=== PATIENT | male | born 1965 | race Caucasian/White ===

== ENCOUNTER → 2020-10-01 | Outpatient (CLI) | payer BC ==
[~2020-10-01] MED LIST: IRBE150T7 PO
--- NOTE | 2020-10-02 01:39 | REP ---
INDICATION: COUGH COMPARISON: None. TECHNIQUE: PA and lateral. FINDINGS: The mediastinum and cardiac silhouette are normal. The lung avila are clear and without acute consolidation, effusion, or pneumothorax. The skeletal structures are intact and normal. IMPRESSION: No acute cardiopulmonary process. <Electronically signed by Chava Wild > 10/02/20 [id number]
== END ==
LOC: M WUC 15:08
PROVIDERS: ATTEND Internal Medicine
DX: R05 Cough (principal)

== ENCOUNTER → 2021-05-07 | Outpatient (CLI) | payer BC ==
--- NOTE | 2021-05-07 19:54 | REPVR ---
PROCEDURE INFORMATION: Exam: MR Cervical Spine Without Contrast Exam date and time: 05/07/2021 2:11 PM Age: 55 years old Clinical indication: Neck pain; Additional info: Pain tingling RT arm hand TECHNIQUE: Imaging protocol: Multiplanar magnetic resonance images of the cervical spine without contrast. COMPARISON: CR CHEST 2 VIEW 10/01/2020 3:23 PM FINDINGS: Cervical vertebral body heights are intact. Straightening of the cervical lordosis. The dens is intact. No abnormal marrow signal. No cord compression, expansion, or abnormal cord signal. Visualized structures of the posterior fossa are unremarkable. Soft tissues are unremarkable. C2-C3: No significant canal or foraminal narrowing. C3-C4: Slight posterior disc protrusion and uncovertebral spurring causing mild canal narrowing and mild bilateral foraminal narrowing. C4-C5: Posterior disc protrusion and uncovertebral spurring cause mild canal narrowing with moderate right and moderate to severe left foraminal narrowing. C5-C6: Posterior disc protrusion and uncovertebral spurring cause mild canal narrowing and moderate to severe bilateral foraminal narrowing. C6-C7: Uncovertebral spurring causes moderate right and severe left foraminal narrowing. No significant canal narrowing. C7-T1: No significant canal or foraminal narrowing. 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 Electronically signed by: Corbin Zapien On 05/07/2021 19:53:56 PM
== END ==
LOC: M PLAIMG 13:00
PROVIDERS: ATTEND Internal Medicine
DX: M79.601 Pain in right arm (principal); M50.221 Other cervical disc displacement at C4-C5 level; M50.222 Other cervical disc displacement at C5-C6 level; M50.223 Other cervical disc displacement at C6-C7 level; M47.812 Spondylosis without myelopathy or radiculopathy, cervical region

== ENCOUNTER → 2024-05-28 | Outpatient (CLI) | payer BC ==
[~2024-05-28] MED LIST changes: +IRBE150T27 PO; -IRBE150T7 PO; +PROHANCE 279.3MG/ML 15ML VIAL As Ordered ONE; +PROHANCE 279.3MG/ML 5ML VIAL As Ordered ONE
== END ==
LOC: M RAD 16:27
PROVIDERS: ATTEND Otolaryngology
DX: H91.92 Unspecified hearing loss, left ear (principal)
CPT/HCPCS: 70553; A9576

== ENCOUNTER → 2024-07-17 | Outpatient (CLI) | payer BC ==
[~2024-07-17] MED LIST changes: -PROHANCE 279.3MG/ML 15ML VIAL As Ordered ONE; -PROHANCE 279.3MG/ML 5ML VIAL As Ordered ONE
== END ==
LOC: M RAD 11:34
PROVIDERS: ATTEND Otolaryngology
DX: H90.3 Sensorineural hearing loss, bilateral (principal); H93.13 Tinnitus, bilateral

== ENCOUNTER → 2024-11-30 | Outpatient (REF) | payer BC | LOC: M LAB REF 12:21 | PROVIDERS: ATTEND Nurse Practitioner Family | DX: R53.83 Other fatigue (principal) ==

== ENCOUNTER → 2025-01-30 | Outpatient (CLI) | payer BC | LOC: M WUC 09:26 | PROVIDERS: ATTEND Physician Assistant Medical | DX: M54.2 Cervicalgia (principal) ==

== ENCOUNTER → 2025-04-05 | Outpatient (CLI) | payer BC | LOC: M PLARAD 07:43 | PROVIDERS: ATTEND Physician Assistant | DX: M54.12 Radiculopathy, cervical region (principal) ==